=== PATIENT | male | born 1990 | race Asian ===

== ENCOUNTER 2018-12-12 01:21 | Emergency (ER) | payer OTHER ==
--- NOTE | 2018-12-12 03:53 | ED ---
Laceration/Wound HPI - HPI Summary HPI Summary: This patient is a 28 year old male presenting to [facility] with a chief complaint of stepping on glass. The patient was able to remove most of the glass but there was one piece in his foot he could not remove. He rates his pain 2/10 in severity. - History of Current Complaint Stated Complaint: GLASS IN FOOT PER PT Hx Obtained From: Patient Mechanism of Injury: Sharp/Blunt Trauma Onset/Duration: Lasting Minutes Pain Intensity: 2 Pain Scale Used: 0-10 Numeric - Allergy/Home Medications Allergies/Adverse Reactions: Allergies Allergy/AdvReac Type Severity Reaction Status Date / Time No Known Allergies Allergy Verified 12/12/18 01:31 PMH/Surg Hx/FS Hx/Imm Hx Endocrine/Hematology History: Denies: Hx Diabetes Cardiovascular History: Denies: Hx Coronary Artery Disease Infectious Disease History: No Infectious Disease History: Denies: Traveled Outside the [place] in Last 30 Days - Family History Known Family History: Negative: Cardiac Disease - Social History Alcohol Use: Occasionally Substance Use Type: Reports: None Smoking Status (MU): Unknown if Ever Smoked Review of Systems Negative: Fever Positive: Other - Foot pain Positive: Other - Laceration, glass in foot All Other Systems Reviewed And Are Negative: Yes Physical Exam - Summary Physical Exam Summary: Appearance: Well-appearing, Well-nourished, lying in bed comfortable Skin: Warm, dry, no obvious rash. 1 cm laceration to the right foot with one piece of glass in the wound. Lateral pressure was applied and the glass came out in one piece. The wound was cleaned. Eyes: sclera anicteric, no conjunctival pallor ENT: mucous membranes moist Neck: deferred Respiratory: No signs of respiratory distress Cardiovascular: Appears well perfused, pulses are nml Abdomen: deferred Musculoskeletal: Moving all 4 extremities without obvious discomfort Neurological: Awake and alert, mentation is normal, speech is fluent and appropriate Psychiatric: affect is normal, does not appear anxious or depressed Triage Information Reviewed: Yes Vital Signs On Initial Exam: Initial Vitals Temp Pulse Resp BP Pulse Ox 97.4 F 73 16 162/106 99 12/12/18 01:27 12/12/18 01:27 12/12/18 01:27 12/12/18 01:27 12/12/18 01:27 Vital Signs Reviewed: Yes Procedures - Sedation Patient Received Moderate/Deep Sedation with Procedure: No Diagnostics - Vital Signs Vital Signs Temp Pulse Resp BP Pulse Ox 12/12/18 01:27 97.4 F 73 16 162/106 99 - Laboratory Lab Statement: Any lab studies that have been ordered have been reviewed, and results considered in the medical decision making process. Laceration Repair Course/Dx - Course Course Of Treatment: This patient is a 28 year old male presenting to [facility] with a chief complaint of glass in his foot. Physical exam reveals 1 cm laceration to the right foot with one piece of glass in the wound. Lateral pressure was applied and the glass came out in one piece. The wound was cleaned. A plan for discharge was discussed with the patient and he was agreeable with this plan. - Clinical Impression Provider Diagnoses: Foreign body in foot Discharge ED - Sign-Out/Discharge Documenting (check all that apply): Patient Departure - Discharge - Discharge Plan Condition: Good Disposition: HOME Patient Education Materials: Soft Tissue Foreign Body (ED) Referrals: No Primary Care Phys,NOPCP [Primary Care Provider] - Additional Instructions: The piece of glass came out in 1 piece. Keep a dressing on the foot for the next few days until the wound closes up. Infection is fairly uncommon but if the area becomes very swollen, tender and red we should see you back here. - Billing Disposition and Condition Condition: GOOD Disposition: Home - Attestation Statements Document Initiated by Tammi: Yes Documenting Luliibe: Fabio Thompson Provider For Whom Tammi is Documenting (Include Credential): Eliseo Mitchell MD Scribe Attestation: Fabio Cr, scribed for Eliseo Mitchell MD on 12/16/18 at 1804. Scribe Documentation Reviewed: Yes Provider Attestation: The documentation as recorded by the Fabio ponce accurately reflects the service I personally performed and the decisions made by me, Eliseo Mitchell MD Status of Scribe Document: Viewed
[2018-12-12 06:07] VITALS: BP 161/118
== END 2018-12-12 04:05 | disposition home or self-care (01) ==
LOC: ED 01:21
DX: S91.321A Laceration with foreign body, right foot, initial encounter (principal); W22.8XXA Striking against or struck by other objects, initial encounter; Y92.9 Unspecified place or not applicable
CPT/HCPCS: 99282